=== PATIENT | female | born 1975 | race American Indian/Alaskan Native ===

== ENCOUNTER 2017-05-04 18:39 | Emergency (ER) | payer SELFPAY ==
[2017-05-04 19:01] VITALS: BP 147/97
[2017-05-04] MEDS ORDERED: TYLENOL ONE (19:02)
--- NOTE | 2017-05-04 20:50 | XRay Report ---
FINAL REPORT PROCEDURE: XR CHEST ROUTINE 2V TECHNIQUE: Two view PA lateral chest HISTORY: sob with fever COMPARISON: No prior studies are available for comparison. FINDINGS: Heart is not enlarged. Mild congestion. Marked interstitial pattern throughout the lungs upper lobe predominance perihilar regions consistent with moderate to severe interstitial pneumonitis IMPRESSION: Findings suggest moderate to severe interstitial pneumonitis, viral type
[2017-05-04 21:59] LABS: Hematocrit 42.5 % (30.3-42.9); Hemoglobin 14.1 gm/dl (10.1-14.3); Mean Corpuscular HGB Conc 33 % (30-34); Mean Corpuscular Hemoglobin 29 pg (28-32); Mean Corpuscular Volume 88 fl (79-97); Platelet Count 177 K/mm3 (140-440); Red Blood Count 4.81 M/mm3 (3.65-5.03); Red Cell Distribution Width 14.6 % (13.2-15.2)
[2017-05-04 22:17] LABS: BUN/Creatinine Ratio 7; Blood Urea Nitrogen 5 mg/dL (7-17); Calcium 8.4 mg/dL (8.4-10.2); Hemolysis Index 5
[2017-05-04 22:58] LABS: Band Neutrophils # (Manual) 0.4 K/mm3; Basophils % (Manual) 0 % (0.0-1.8); Eosinophils % (Manual) 0 % (0.0-4.3); Total Cells Counted 100
[2017-05-04 23:00] LABS: Platelet Estimate Consistent w Auto; RBC Morphology Normal
== END 2017-05-05 00:20 | disposition left against medical advice (07) ==
LOC: EDBD → ED 18:39
DX: J00 Acute nasopharyngitis [common cold] (principal); Z53.21 Procedure and treatment not carried out due to patient leaving prior to being seen by health care provider
CPT/HCPCS: 36415; 71046; 80048; 85007; 85025

== ENCOUNTER 2017-05-05 18:17 | Emergency (ER) | payer SELFPAY ==
[2017-05-05] MEDS ORDERED: DIPRIVAN 10 MG/ML 1,000 MG/100 ML BOTTLE IV ONE (23:10)
== END 2017-05-05 21:00 | disposition left against medical advice (07) ==
LOC: ED 18:17
DX: Z53.21 Procedure and treatment not carried out due to patient leaving prior to being seen by health care provider (principal)
CPT/HCPCS: J2704

== ENCOUNTER 2019-01-02 23:26 | Emergency (ER) | payer SELFPAY ==
[2019-01-02] MEDS ORDERED: ASPIRIN PO ONE (23:43)
[2019-01-03 00:12] LABS: Basophils # (Auto) 0.1 K/mm3 (0.0-0.1); Basophils % (Auto) 1.2 % (0.0-1.8); Eosinophils # (Auto) 0.5 K/mm3 (0.0-0.4); Eosinophils % (Auto) 7.3 % (0.0-4.3); Hematocrit 39.6 % (30.3-42.9); Hemoglobin 13.3 gm/dl (10.1-14.3); Lymphocytes # (Auto) 1.8 K/mm3 (1.2-5.4); Lymphocytes % (Auto) 24.4 % (13.4-35.0); Mean Corpuscular HGB Conc 34 % (30-34); Mean Corpuscular Volume 91 fl (79-97); Monocytes # (Auto) 0.8 K/mm3 (0.0-0.8); Monocytes % (Auto) 11.2 % (0.0-7.3); Platelet Count 218 K/mm3 (140-440); Red Blood Count 4.33 M/mm3 (3.65-5.03); Red Cell Distribution Width 14.2 % (13.2-15.2)
--- NOTE | 2019-01-03 00:22 | XRay Report ---
CHEST 1 VIEW INDICATION / CLINICAL INFORMATION: Chest Pain. COMPARISON: 05/04/2017 FINDINGS: SUPPORT DEVICES: None. HEART / MEDIASTINUM: No significant abnormality. LUNGS / PLEURA: A fine reticular pattern of interstitial disease is identified bilaterally with upper zonal predominance. The appearance is similar to the comparison study. No evidence of superimposed airspace disease. No pneumothorax. ADDITIONAL FINDINGS: No significant additional findings. IMPRESSION: 1. Chronic appearing interstitial disease is unchanged. Signer Name: Nic Shaffer MD Signed: 01/03/2019 12:18 AM Workstation Name: [email or web address]
[2019-01-03 00:28] LABS: BUN/Creatinine Ratio 13; Blood Urea Nitrogen 9 mg/dL (7-17); Calcium 8.7 mg/dL (8.4-10.2); Hemolysis Index 12
[2019-01-03] MEDS ORDERED: VEETIDS PO ONE (04:43)
[2019-01-03] MEDS ORDERED: IBUPROFEN PO ONE (04:43)
[2019-01-03] MEDS ORDERED: PERCOCET 5/325 PO ONE (04:43)
--- NOTE | 2019-01-03 04:46 | Event Note ---
Date: 01/03/19 43-year-old female, states that she is not , presenting today with primary complaint of dental pain, over tooth #32, and 31. Pain is present for 1 month. It is gradually getting worse. She is found to have dental caries, gingivitis, and probable dental infection. She is protecting her airway and phonating well. She does not have a private dentist. At one point time, she complained of chest pain. To me, she denies chest pain. Medicines headache associated with dental pain. There is no trismus or stridor. EKG shows sinus, 74 bpm, normal axis, QTC is prolonged, high left ventricular voltages. Denies DVT, pulmonary embolus risk factors, low risk by well's criteria, perc negative Print Report Referring Physician: ABDIRAHMAN HOLLINS Patient Name: ANITA RAMIREZ Date of : 1975 Sex: Female Report Date: 2019-01-03 Report Status: Finalized Findings [address] [address] XRay Report Signed Patient: ANITA RAMIREZ MR#: [id number] : 1975 Acct:[id number] Age/Sex: 43 / F ADM Date: 01/02/19 Loc: ED Attending Dr: Ordering Physician: ABDIRAHMAN HOLLINS Date of Service: 01/02/19 Procedure(s): XR chest 1V ap Accession Number(s): [id number] cc: ABDIRAHMAN HOLLINS Fluoro Time In Minutes: CHEST 1 VIEW INDICATION / CLINICAL INFORMATION: Chest Pain. COMPARISON: 05/04/2017 FINDINGS: SUPPORT DEVICES: None. HEART / MEDIASTINUM: No significant abnormality. LUNGS / PLEURA: A fine reticular pattern of interstitial disease is identified bilaterally with upper zonal predominance. The appearance is similar to the comparison study. No evidence of superimposed airspace disease. No pneumothorax. ADDITIONAL FINDINGS: No significant additional findings. IMPRESSION: 1. Chronic appearing interstitial disease is unchanged. Signer Name: Nic Shaffer MD Signed: 01/03/2019 12:18 AM Workstation Name: [email or web address] Transcribed By: [place] Dictated By: Nic Shaffer MD Electronically Authenticated By: Nic Shaffer MD Signed Date/Time: 01/03/1917 DD/ Vital Signs 01/02/19 23:31 Temperature 99.0 F Pulse Rate 82 Respiratory 18 Rate Blood Pressure 182/106 O2 Sat by Pulse 98 Oximetry Lab Results 01/02/19 01/02/19 Range/Units 23:54 23:54 WBC 7.5 (4.5-11.0) K/mm3 RBC 4.33 (3.65-5.03) M/mm3 Hgb 13.3 (10.1-14.3) gm/dl Hct 39.6 (30.3-42.9) % MCV 91 (79-97) fl MCH 31 (28-32) pg MCHC 34 (30-34) % RDW 14.2 (13.2-15.2) % Plt Count 218 (140-440) K/mm3 Lymph % (Auto) 24.4 (13.4-35.0) % Potter % (Auto) 11.2 H (0.0-7.3) % Eos % (Auto) 7.3 H (0.0-4.3) % Baso % (Auto) 1.2 (0.0-1.8) % Lymph # 1.8 (1.2-5.4) K/mm3 Potter # 0.8 (0.0-0.8) K/mm3 Eos # 0.5 H (0.0-0.4) K/mm3 Baso # 0.1 (0.0-0.1) K/mm3 Seg Neutrophils % 55.9 (40.0-70.0) % Seg Neutrophils # 4.2 (1.8-7.7) K/mm3 Sodium 140 (137-145) mmol/L Potassium 4.0 (3.6-5.0) mmol/L Chloride 106.1 (98-107) mmol/L Carbon Dioxide 23 (22-30) mmol/L Anion Gap 15 mmol/L BUN 9 (7-17) mg/dL Creatinine 0.7 (0.7-1.2) mg/dL Estimated GFR > 60 ml/min BUN/Creatinine Ratio 13 % Glucose 82 (65-100) mg/dL Calcium 8.7 (8.4-10.2) mg/dL Troponin T < 0.010 (0.00-0.029) ng/mL
--- NOTE | 2019-01-03 06:27 | Emergency Department Report ---
ED General Adult HPI - General Chief complaint: Chest Pain Stated complaint: HEAD AND CHEST PAIN Time Seen by Provider: 01/03/19 06:17 Source: patient Mode of arrival: Ambulatory Limitations: No Limitations - History of Present Illness Initial comments: Patient is 43 years old female with history of hypertension. Patient presented to the ER complaining of toothache for the last 5 days. Patient stated that she was taking Excedrin Migraine but no relief. Patient also stated that she started having some chest pain, sharp with no radiation. Patient stated that she think her chest pain is due to her toothache. Upon the examination patient stated that chest pain is completely resolved patient noticed to have a blood pressure of 182/106. Patient stated that she is not taking any blood pressure medicine now. Severity scale (0 -10): 8 - Related Data Previous Rx's Medication Instructions Recorded Last Taken Type Amoxicillin [Amoxicillin TAB] 875 mg PO BID #14 tablet 01/03/19 Unknown Rx Ondansetron [Zofran Odt] 4 mg PO Q8HR PRN #14 tab.rapdis 01/03/19 Unknown Rx amLODIPine [Norvasc] 5 mg PO DAILY #30 tab 01/03/19 Unknown Rx traMADol [Ultram 50 MG tab] 50 mg PO Q4HR PRN #14 tablet 01/03/19 Unknown Rx Allergies Allergy/AdvReac Type Severity Reaction Status Date / Time No Known Allergies Allergy Unverified 05/04/17 18:58 ED Review of Systems ROS: Stated complaint: HEAD AND CHEST PAIN Other details as noted in HPI Comment: All other systems reviewed and negative Constitutional: denies: chills, fever ENT: dental pain Respiratory: denies: cough, shortness of breath Cardiovascular: chest pain. denies: palpitations Gastrointestinal: denies: abdominal pain, nausea, vomiting Neurological: denies: headache, weakness, numbness, paresthesias, confusion, abnormal gait ED Past Medical Hx - Past Medical History Previous Medical History?: Yes Hx Pulmonary Embolism: Yes Additional medical history: gi bleed - Surgical History Past Surgical History?: Yes Additional Surgical History: Partial hysterectomy - Social History Smoking Status: Current Every Day Smoker Substance Use Type: None - Medications Home Medications: Home Medications Medication Instructions Recorded Confirmed Last Taken Type Amoxicillin [Amoxicillin TAB] 875 mg PO BID #14 tablet 01/03/19 Unknown Rx Ondansetron [Zofran Odt] 4 mg PO Q8HR PRN #14 tab.rapdis 01/03/19 Unknown Rx amLODIPine [Norvasc] 5 mg PO DAILY #30 tab 01/03/19 Unknown Rx traMADol [Ultram 50 MG tab] 50 mg PO Q4HR PRN #14 tablet 01/03/19 Unknown Rx ED Physical Exam - General Limitations: No Limitations General appearance: alert, in no apparent distress - Head Head exam: Present: atraumatic, normocephalic, normal inspection - Eye Eye exam: Present: normal appearance, PERRL - ENT ENT exam: Present: normal exam, normal orophraynx, mucous membranes moist, other (dental caries right lower Jaw multiple) - Neck Neck exam: Present: normal inspection, full ROM. Absent: tenderness, meningismus, lymphadenopathy, thyromegaly - Respiratory Respiratory exam: Present: normal lung sounds bilaterally - Cardiovascular Cardiovascular Exam: Present: regular rate, normal rhythm, normal heart sounds - GI/Abdominal GI/Abdominal exam: Present: soft, normal bowel sounds. Absent: distended, tenderness, guarding, rebound, rigid, organomegaly, mass, bruit, pulsatile mass, hernia - Extremities Exam Extremities exam: Present: normal inspection, full ROM, normal capillary refill. Absent: tenderness, pedal edema, joint swelling, calf tenderness - Back Exam Back exam: Present: normal inspection, full ROM. Absent: CVA tenderness (R), CVA tenderness (L), muscle spasm, paraspinal tenderness, vertebral tenderness - Neurological Exam Neurological exam: Present: alert, oriented X3, CN II-XII intact, normal gait, reflexes normal - Psychiatric Psychiatric exam: Present: normal mood - Skin Skin exam: Present: warm, intact, normal color ED Course Vital Signs 01/02/19 01/03/19 01/03/19 23:31 05:07 05:08 Temperature 99.0 F Pulse Rate 82 Respiratory 18 18 18 Rate Blood Pressure 182/106 Blood Pressure [Left] O2 Sat by Pulse 98 Oximetry 01/03/19 01/03/19 06:07 06:49 Temperature 98.8 F Pulse Rate 78 Respiratory 18 18 Rate Blood Pressure Blood Pressure 170/90 [Left] O2 Sat by Pulse 100 Oximetry ED Medical Decision Making - Lab Data Result diagrams: 01/02/19 23:54 01/02/19 23:54 - EKG Data -: EKG Interpreted by Me EKG shows normal: sinus rhythm - EKG Data Interpretation: no acute changes - Radiology Data Radiology results: report reviewed - Medical Decision Making Patient is 43 years old female with history of hypertension. Patient presented to the ER complaining of toothache for the last 5 days. Patient stated that she was taking Excedrin Migraine but no relief. Patient also stated that she started having some chest pain, sharp with no radiation. Patient stated that she think her chest pain is due to her toothache. Upon the examination patient stated that chest pain is completely resolved patient noticed to have a blood pressure of 182/106. Patient stated that she is not taking any blood pressure medicine now. EKG is unremarkable. Chest x-ray is negative for acute finding. Labs reviewed and is negative including a troponin. Patient is sleeping comfortably in no acute distress and he stated that her chest pain completely resolved. Patient given a prescription for amoxicillin and tramadol and Zofran. Patient also advised to follow-up with her primary care physician in the next 2-3 days for cardiac workup as an outpatient and also advised to return to the ER if symptoms are not improved. Patient given Norvasc for blood pressure. Critical care attestation.: If time is entered above; I have spent that time in minutes in the direct care of this critically ill patient, excluding procedure time. ED Disposition Clinical Impression: Chest pain, Hypertension, Dental abscess Disposition: TO HOME OR SELFCARE Is pt being admited?: No Condition: Stable Instructions: Chest Pain (ED), Dental Abscess (ED), Hypertension (ED) Prescriptions: Amoxicillin [Amoxicillin TAB] 875 mg PO BID #14 tablet amLODIPine [Norvasc] 5 mg PO DAILY #30 tab traMADol [Ultram 50 MG tab] 50 mg PO Q4HR PRN #14 tablet PRN Reason: Pain Ondansetron [Zofran Odt] 4 mg PO Q8HR PRN #14 tab.rapdis PRN Reason: Nausea And Vomiting Referrals: PRIMARY CARE,MD [Primary Care Provider] - 3-5 Days
[2019-01-03 06:58] VITALS: BP 170/90
== END 2019-01-03 06:49 | disposition home or self-care (01) ==
LOC: ED 23:26
DX: K04.7 Periapical abscess without sinus (principal); R07.89 Other chest pain; I10 Essential (primary) hypertension; F17.200 Nicotine dependence, unspecified, uncomplicated; Z90.710 Acquired absence of both cervix and uterus; Z79.899 Other long term (current) drug therapy
CPT/HCPCS: 36415; 71045; 80048; 84484; 85025; 93005; 93010